=== PATIENT | female | born 1995 | race Caucasian/White ===

== ENCOUNTER 2020-05-05 15:16 | Emergency (ER) | payer MEDICAID ==
[~2020-05-05] VITALS: Ht 165.1 cm; Wt 55.9 kg
[~2020-05-05 15:16] MED LIST: NOCURR
[2020-05-05 16:51] VITALS: BP 132/76
== END 2020-05-05 16:59 | disposition home or self-care (01) ==
LOC: EDUNIT# 15:16 → EMS 15:30
DX: S01.102A Unspecified open wound of left eyelid and periocular area, initial encounter (principal); W57.XXXA Bitten or stung by nonvenomous insect and other nonvenomous arthropods, initial encounter; Y93.89 Activity, other specified; Y92.89 Other specified places as the place of occurrence of the external cause; Y99.8 Other external cause status